=== PATIENT | female | born 1955 | race Caucasian/White ===

== ENCOUNTER → 2016-10-07 | Outpatient (CLI) | payer MEDICARE, OTHER ==
[~2016-10-07] MED LIST: AMITRIPTYLINE H75 MG PO; ATROVENT INH S2.5 ML INH; BUSPAR 5MG TABLE5 MG PO; CALCIUM 600 +1 EAC3 PO; CEFUROXIME500 MG PO; CELEBREX200 MG PO; FENOFIBRATE160 MG PO; FERROUS SULFAT325 M2 PO; FLONASE ALLER15.8 ML; HABITROL 14 MG P1 EA TD; K-DUR TAB 20 M20 MEQ PO; KERLONE PO; LASIX20 MG PO; LYRICA100 MG PO; MULTIVITAMINS1 EAC1 PO; PROAIR HFA8.5 GM INH; PROTONIX40 MG PO; REQUIP3 MG PO; SALAGEN5 MG PO; SINGULAIR10 MG PO; SPIRIVA18 MCG INH; VENTOLIN/PROVE0.5 ML INH; WELLBUTRIN XL150 MG PO; ZYPREXA15 MG PO; ZYRTEC10 M3 PO
== END ==
LOC: ECHO 10-01 12:00 → MAMO 10-01 15:20
DX: Z12.31 Encounter for screening mammogram for malignant neoplasm of breast (principal); I50.9 Heart failure, unspecified; I07.9 Rheumatic tricuspid valve disease, unspecified; Z79.01 Long term (current) use of anticoagulants
CPT/HCPCS: ECHO; 93306; G0202